=== PATIENT | male | born 1970 | race African-American/Black ===

== ENCOUNTER 2019-04-21 13:11 | Emergency (ER) | payer OTHER ==
[~2019-04-21] VITALS: Ht 182.9 cm; Wt 97.7 kg
[2019-04-21 13:16] VITALS: BP 181/109; Ht 182.9 cm; Wt 97.7 kg
[2019-04-21] MEDS ORDERED: HYDROCODONE/APAP (5/325) TAB PO ONE (13:30)
[2019-04-21] MEDS ORDERED: DIPHTH/TET/ACEL PERTUSS (ADULT) 0.5 ML VIAL IM* ONE (13:30)
[2019-04-21] MEDS ORDERED: TRAM50TA2 PO (16:28)
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
[2019-04-21 16:56] VITALS: PULSE 105; RESP 16
== END 2019-04-21 16:56 | disposition home or self-care (01) ==
LOC: E/R 13:11
DX: S01.111A Laceration without foreign body of right eyelid and periocular area, initial encounter (principal); R40.2142 Coma scale, eyes open, spontaneous, at arrival to emergency department; R40.2362 Coma scale, best motor response, obeys commands, at arrival to emergency department; R40.2252 Coma scale, best verbal response, oriented, at arrival to emergency department; Y09 Assault by unspecified means; Z23 Encounter for immunization; Z87.891 Personal history of nicotine dependence
CPT/HCPCS: 70450; 70480; 90471; 90715; Z7502; Z7610